=== PATIENT | female | born 1975 | race Caucasian/White ===

== ENCOUNTER 2020-10-14 07:05 | Emergency (ER) | payer SELFPAY ==
[~2020-10-14] VITALS: Ht 152.4 cm; Wt 63.6 kg
[2020-10-14] MEDS ORDERED: OFLOXACIN0.3 % OS (09:11)
[2020-10-14] MEDS ORDERED: NORVASC5 M1 PO (09:11)
[2020-10-14 09:44] VITALS: BP 188/79
== END 2020-10-14 09:45 | disposition home or self-care (01) | DRG 125 ==
LOC: ED 07:05
DX: H18.822 Corneal disorder due to contact lens, left eye (principal); R03.0 Elevated blood-pressure reading, without diagnosis of hypertension